=== PATIENT | male | born 1965 | race Caucasian/White ===

== ENCOUNTER 2019-07-20 16:30 | Emergency (ER) | payer OTHER ==
[~2019-07-20] VITALS: Ht 185.4 cm; Wt 95.3 kg
[~2019-07-20 16:30] MED LIST: BACTRIM DS TAB1 EACH PO; DOXYCYCLINE 10100 M1 PO; HYDROCODONE-APA1 TA1 PO; KEFLEX500 MG PO; NOHOMEMEDICATIONS; NORCO 5-325 TA1 EACH PO; PERCOCET PO; ULTRAM 50MG TAB50 MG PO; ZOFRAN ODT4 MG PO
[2019-07-20] MEDS ORDERED: KEFLEX500 M1 PO (17:17)
[2019-07-20 17:41] VITALS: BP 145/80
== END 2019-07-20 17:42 | disposition home or self-care (01) ==
LOC: M.ERS 16:30
DX: S61.412A Laceration without foreign body of left hand, initial encounter (principal); W26.8XXA Contact with other sharp object(s), not elsewhere classified, initial encounter; Y92.89 Other specified places as the place of occurrence of the external cause; Y93.89 Activity, other specified; Y99.8 Other external cause status

== ENCOUNTER 2021-01-03 18:21 | Emergency (ER) | payer OTHER ==
[~2021-01-03] VITALS: Ht 182.9 cm; Wt 90.7 kg
[~2021-01-03 18:21] MED LIST changes: +KEFLEX500 M1 PO
[2021-01-03] MEDS ORDERED: CEPHALEXIN500 MG PO (19:04)
[2021-01-03] MEDS ORDERED: MEDROLDOSEPACK PO (19:04)
[2021-01-03] MEDS ORDERED: BACTRIM DS TAB1 EAC1 PO (19:04)
[2021-01-03] MEDS ORDERED: NORCO5 PO ×2 (19:04→20:01)
[2021-01-03 19:13] VITALS: BP 151/54
== END 2021-01-03 19:53 | disposition home or self-care (01) ==
LOC: M.ERS 18:21
DX: M70.22 Olecranon bursitis, left elbow (principal); Y93.89 Activity, other specified